=== PATIENT | male | born 1940 | race Two or more races ===

== ENCOUNTER 2017-07-10 21:25 | Emergency (ER) | payer MEDICARE, OTHER ==
[2017-07-10] MEDS: SOD CHLORIDE 0.9% 1,000 ML IV (22:13)
[2017-07-10 22:17] LABS: ADD MAN DIFF? NO
[2017-07-10 22:20] LABS: BASOPHILS % 0.3 % (0.0-2.0); EOSINOPHILS # 0.1 10^3/ul (0.0-0.5); EOSINOPHILS % 1.2 % (0.0-7.0); HEMATOCRIT 39.1 % (42.0-52.0); HEMOGLOBIN 12.6 g/dl (14.0-18.0); LYMPHOCYTES # 2.2 10^3/ul (0.8-2.9); LYMPHOCYTES % 24.8 % (15.0-51.0); MEAN CORPUSCULAR HEMOGLOBIN 29.9 pg (29.0-33.0); MEAN CORPUSCULAR HGB CONC 32.2 g/dl (32.0-37.0); MEAN CORPUSCULAR VOLUME 92.9 fl (82.0-101.0); MONOCYTE # 0.8 10^3/ul (0.3-0.9); MONOCYTES % 8.8 % (0.0-11.0); NEUTROPHIL # 5.8 10^3/ul (1.6-7.5); NEUTROPHILS % 64.6 % (39.0-77.0); PLATELET COUNT 245 10^3/UL (140-415); RED BLOOD COUNT 4.21 10^6/ul (4.70-6.10); RED CELL DISTRIBUTION WIDTH 14.3 % (11.5-14.5)
[2017-07-10 22:36] LABS: INR 0.94; PROTIME 12.7 Sec (11.9-14.9)
[2017-07-10 22:37] LABS: PARTIAL THROMBOPLASTIN TIME 27.8 Sec (25.0-35.0)
[2017-07-10 22:40] LABS: ANION GAP 12 (8-16); BLOOD UREA NITROGEN 32 mg/dl (7-20); CALCIUM 8.4 mg/dl (8.4-10.2); CARBON DIOXIDE 26 mmol/L (21-31); CHLORIDE 106 mmol/L (97-110); CHOL/HDL RATIO 2.4 RATIO; CHOLESTEROL 125 mg/dl (100-200); CREATININE 1.46 mg/dl (0.61-1.24); GLUCOSE 101 mg/dl (70-220); HDL CHOLESTEROL 52 mg/dl (31-75); LDL CHOLESTEROL,CALCULATED 53 mg/dl; SODIUM 140 mmol/L (135-144); TRIGLYCERIDES 101 mg/dl (0-149)
[2017-07-10 22:54] LABS: TROPONIN-I < 0.012 ng/ml (0.00-0.12)
== END 2017-07-11 01:53 | disposition home or self-care (01) ==
LOC: E/R 07-11 01:53
DX: R20.2 Paresthesia of skin (principal); N18.9 Chronic kidney disease, unspecified; M48.02 Spinal stenosis, cervical region; D64.9 Anemia, unspecified; R40.2142 Coma scale, eyes open, spontaneous, at arrival to emergency department; R40.2252 Coma scale, best verbal response, oriented, at arrival to emergency department; R40.2362 Coma scale, best motor response, obeys commands, at arrival to emergency department; R06.02 Shortness of breath
CPT/HCPCS: 36415; 70450; 71045; 72125; 80048; 80061; 84484; 85025; 85610; 85730; 93005; 99285-25